=== PATIENT | male | born 1990 | race Hispanic/Latino ===

== ENCOUNTER 2020-11-13 10:03 | Emergency (ER) | payer SELFPAY ==
[2020-11-13 10:51] LABS: Absolute Lymphocytes (CBC) 1.1 K/uL (0.7-4.9); Basophils % 0.4 % (0-1.3); Hematocrit 44.7 % (39.6-49.0); MPV 8.7 fL (7.6-11.3); RBC Red Blood Cell Count 5.25 M/uL (4.33-5.43)
[2020-11-13 11:17] LABS: ALT/SGPT 56 U/L (12-78); AST/SGOT 34 U/L (15-37); Albumin 4.1 g/dL (3.4-5.0); Alkaline Phosphatase 110 U/L (45-117); BUN Blood Urea Nitrogen 20 mg/dL (7-18); Bicarbonate 22 mmol/L (21-32); Bilirubin Direct < 0.1 mg/dL (0-0.2); Bilirubin Total 0.6 mg/dL (0.2-1.0); Glucose Level 106 mg/dL (74-106); Lipase 80 U/L (73-393); Potassium 3.8 mmol/L (3.5-5.1); Protein, Total 8.6 g/dL (6.4-8.2); Sodium Level 139 mmol/L (136-145)
[2020-11-13] MEDS ORDERED: NA CHLORIDE 0.9% 1,000 ML ONE (11:37)
[2020-11-13] MEDS ORDERED: ONDANSETRON 4 MG/2 ML VIAL ONE (11:37)
[2020-11-13] MEDS ORDERED: MORPHINE 4 MG/ML SYR ONE (11:37)
--- NOTE | 2020-11-13 11:55 | RAD REPORT ---
EXAM DESCRIPTION: CT - Stone Protocol - 11/13/2020 11:19 am CLINICAL HISTORY: right flank pain Available history indicates the patient underwent a contrast-enhanced CT study 1 day earlier at an [place] [facility]. COMPARISON: Head Brain Wo Cont dated 04/19/2018No comparisons TECHNIQUE: Axial 3 mm thick images were obtained without oral or IV contrast. The [id number] span s the entirety of the system including uppermost abdomen and lung bases. All CT scans are performed using dose optimization technique as appropriate and may include automated exposure control or mA/KV adjustment according to patient size. FINDINGS: Mild right-sided hydronephrosis is present down to the UVJ level where there is a 2-3 mm c alculus. Contrast column fills the mildly dilated right collecting system. No other obstructing or no nobstructing calculi seen on the right. No left-sided hydronephrosis or calculi. No suspicious renal masses. Isodense masses and pyelonephritis are not excluded on a stone protocol CT scan. No significa nt adrenal finding. No urinary bladder suspicious finding. Imaged portions of the liver, spleen and pancreas show no suspicious findings on non-contrast imaging . No gallbladder or biliary tree abnormality identified. No suspicious bowel findings. No hernia, mass or bulky lymphadenopathy noted. No free air, free fluid or inflammatory stranding. No significant bony abnormality. Limited imaging of the lower chest shows no acute pleural or parenchymal process. The partially image d mediastinum and red show evidence for bulky lymphadenopathy. These areas are only partially imaged . Correlation is needed with any history of sarcoidosis or other non malignant etiology for lymphadenop athy. It is unknown if the prior day CT imaging included the chest. IMPRESSION: Mild right-sided hydronephrosis secondary to a 2-3 mm obstructing calculus at the right UVJ. Patient has suspicious mediastinal and hilar lymphadenopathy that is only partially imaged on this st udy. No additional history available regarding sarcoidosis or other non malignant sources for adenopa thy. Patient had contrast-enhanced CT imaging at an outside facility 1 day earlier. It is unknown if this included the chest. Isodense masses and pyelonephritis are not excluded on stone protocol technique.
[2020-11-13 12:48] LABS: Urine Blood 2+ (Negative); Urine Glucose Negative (Negative); Urine Protein Trace (Negative); Urine Specific Gravity >=1.030 (1.005-1.030); Urine pH 5.5 (5.0-7.0)
[2020-11-13] MEDS ORDERED: MAGNESIUM SULFATE 1 gm IVPB 1 GM/100 ML BAG IV ONE (12:58)
[2020-11-13] MEDS ORDERED: TAMSULOSIN 0.4 MG SR CAP ONE (12:58)
[2020-11-13] MEDS ORDERED: CEFTRIAXONE/SWI 1gm 1 GM/10 ML SYR ONE (12:58)
--- NOTE | 2020-11-13 13:04 | ER ---
Nurse's Notes [facility] Name: Alex Mathis Age: 30 yrs Sex: Male : 1990 Arrival Date: 11/13/2020 Time: 10:04 Bed 24 Private MD: Diagnosis: Calculus of ureter-right Presentation: 11/13 10:59 Chief complaint: Patient states: right flank, back pain since yesterday. Coronavirus iw screen: At this time, the client does not indicate any symptoms associated with coronavirus-19. Ebola Screen: Patient negative for fever greater than or equal to 101.5 degrees Fahrenheit, and additional compatible Ebola Virus Disease symptoms Patient denies exposure to infectious person. Patient denies travel to an Ebola-affected area in the 21 days before illness onset. No symptoms or risks identified at this time. Initial Sepsis Screen: Does the patient meet any 2 criteria? No. Patient's initial sepsis screen is negative. Does the patient have a suspected source of infection? No. Patient's initial sepsis screen is negative. Risk Assessment: Do you want to hurt yourself or someone else? Patient reports no desire to harm self or others. Onset of symptoms was November 12, 2020. 10:59 Method Of Arrival: Ambulatory iw 10:59 Acuity: CHENG 3 iw Historical: - Allergies: 11:01 No Known Allergies; iw - PMHx: 11:01 None; iw - Social history:: Smoking status: unknown. Screenin:01 Abuse screen: Denies threats or abuse. Denies injuries from another. Nutritional iw screening: No deficits noted. Tuberculosis screening: No symptoms or risk factors identified. Fall Risk None identified. Assessment: 11:01 General: Appears uncomfortable, Behavior is cooperative. Pain: Complains of pain in iw right mid back and right low back Pain radiates to right lower quadrant. Neuro: Level of Consciousness is awake, alert, obeys commands, Oriented to person, place, time, situation, Moves all extremities. Full function. Respiratory: Respiratory effort is even, unlabored. GI: Bowel sounds present X 4 quads. Abd is soft X 4 quads. Musculoskeletal: Range of motion: intact in all extremities. 14:00 Reassessment: patient ambulated out, given good RX coupon as well. no c/o at this time. zb Vital Signs: 10:59 BP 140 / 94; Pulse 95; Resp 16; Temp 97.4; Pulse Ox 99% on R/A; iw ED Course: 10:04 Patient arrived in ED. as 10:12 Dru Mares PA is PHCP. cp 10:12 Dru Pennington MD is Attending Physician. cp 10:42 Initial lab(s) drawn, by in, sent to lab. Inserted saline lock: 20 gauge in right em1 wrist, using aseptic technique. Blood collected. 10:59 Mirtha Parry, RN is Primary Nurse. iw 11:00 Triage completed. iw 11:05 Patient has correct armband on for positive identification. iw 11:19 CT Stone Protocol In Process Unspecified. EDMS 13:03 Brayden Pierson MD is Referral Physician. cp 14:00 No provider procedures requiring assistance completed. IV discontinued, intact, iw bleeding controlled, No redness/swelling at site. Pressure dressing applied. 14:00 Arm band placed on. zb Administered Medications: 11:37 Drug: NS 0.9% 1000 ml Route: IV; Rate: 1 bolus; Site: right hand; iw 12:35 Follow up: IV Status: Completed infusion iw 11:37 Drug: Zofran (Ondansetron) 4 mg Route: IVP; Site: right wrist; iw 12:00 Follow up: Response: No adverse reaction iw 11:37 Drug: morphine 4 mg Route: IVP; Site: right wrist; iw 12:00 Follow up: Response: No adverse reaction; Pain is decreased iw 12:51 Drug: Flomax (tamsulosin) 0.4 mg Route: PO; iw 13:30 Follow up: Response: No adverse reaction iw 12:51 Drug: Magnesium Sulfate 1 grams Route: IVPB; Infused Over: 1 hrs; Site: right wrist; iw 13:30 Follow up: IV Status: Completed infusion iw 12:51 Drug: Rocephin (cefTRIAXone) 1 grams Route: IV; Rate: calculated rate; Site: right iw wrist; 13:10 Follow up: IV Status: Completed infusion iw Outcome: 13:04 Discharge ordered by . cp 14:00 Patient left the ED. iw 14:00 Discharged to home ambulatory. zb 14:00 Condition: stable 14:00 Discharge instructions given to patient, Instructed on discharge instructions, follow up and referral plans. medication usage, Demonstrated understanding of instructions, follow-up care, medications, Prescriptions given X 3. Signatures: Dispatcher [employer] Yuridia Alaniz Irene, RN Stalin Sesay em1 Dru Mares PA PA cp Brown, Zipporah, RN RN zb
--- NOTE | 2020-11-13 13:04 | EDPHYS ---
Physician Documentation [facility] Name: Alex Mathis Age: 30 yrs Sex: Male : 1990 Arrival Date: 11/13/2020 Time: 10:04 Bed 24 Private MD: ED Physician Dru Pennington HPI: 11/13 11:00 This 30 yrs old Male presents to ER via Ambulatory with complaints of Possible cp Kidney Stone. 11:00 The patient complains of pain in the right flank. cp 11:00 The pain radiates to the back and abdomen. Onset: The symptoms/episode began/occurred cp yesterday. Associated signs and symptoms: Pertinent positives: nausea, Pertinent negatives: diarrhea, fever, pain radiating to the lower extremities, vomiting. 11:00 Severity of pain: in the emergency department the pain is unchanged despite home cp interventions. 12:15 Patient reports being seen at [facility] yesterday and being diagnosed with cp kidney stone. Patient was prescribed Ibuprofen for pain and Flomax. Historical: - Allergies: 11:01 No Known Allergies; iw - PMHx: 11:01 None; iw - Social history:: Smoking status: unknown. ROS: 11:05 Constitutional: Negative for body aches, chills, fever, poor PO intake. cp 11:05 Eyes: Negative for injury, pain, redness, and discharge. cp 11:05 ENT: Negative for ear pain, sore throat, difficulty swallowing, difficulty handling secretions. 11:05 Cardiovascular: Negative for chest pain, palpitations. 11:05 Respiratory: Negative for cough, shortness of breath, wheezing. 11:05 Abdomen/GI: Positive for abdominal pain, nausea and vomiting, Negative for diarrhea, constipation. 11:05 Back: Positive for flank pain, on the right. 11:05 Neuro: Negative for altered mental status, headache, weakness. 11:05 All other systems are negative. Exam: 11:10 Constitutional: The patient appears in no acute distress, alert, awake, cp non-diaphoretic, non-toxic, well developed, well nourished, in obvious pain, uncomfortable. 11:10 Head/Face: Normocephalic, atraumatic. cp 11:10 Eyes: Periorbital structures: appear normal, Conjunctiva: normal, no exudate, no injection, Sclera: no appreciated abnormality, Lids and lashes: appear normal, bilaterally. 11:10 ENT: External ear(s): are unremarkable, Nose: is normal, Mouth: Lips: moist, Oral mucosa: pink and intact, moist, Posterior pharynx: Airway: no evidence of obstruction, patent. 11:10 Chest/axilla: Inspection: normal, Palpation: is normal, no crepitus, no tenderness. 11:10 Cardiovascular: Rate: normal, Rhythm: regular. 11:10 Respiratory: the patient does not display signs of respiratory distress, Respirations: normal, no use of accessory muscles, no retractions, labored breathing, is not present, Breath sounds: are clear throughout, no decreased breath sounds, no stridor, no wheezing. 11:10 Abdomen/GI: Inspection: abdomen appears normal, Bowel sounds: active, all quadrants, Palpation: soft, in all quadrants, moderate abdominal tenderness, in the anterior aspect of right lateral abdomen and posterior aspect of right lateral abdomen, rebound tenderness, is not appreciated, voluntary guarding, is elicited in the anterior aspect of right lateral abdomen and posterior aspect of right lateral abdomen. 11:10 Back: pain, that is moderate, of the right low back, ROM is painful. 11:10 Skin: no rash present. Vital Signs: 10:59 BP 140 / 94; Pulse 95; Resp 16; Temp 97.4; Pulse Ox 99% on R/A; iw MDM: 10:48 Patient medically screened. cp 11:00 Differential diagnosis: nephrolithiasis, pyelonephritis, UTI, testicular torsion, cp diverticulitis, pancreatitis, appendicitis. 13:00 Data reviewed: vital signs, nurses notes, lab test result(s), radiologic studies, CT cp scan. ED course: no results found on website of [place] prescription monitor program. 13:03 Counseling: I had a detailed discussion with the patient and/or guardian regarding: the cp historical points, exam findings, and any diagnostic results supporting the discharge/admit diagnosis, lab results, radiology results, the need for outpatient follow up, a family practitioner, a urologist, to return to the emergency department if symptoms worsen or persist or if there are any questions or concerns that arise at home. 13:03 Response to treatment: the patient's symptoms have markedly improved after treatment. cp ED course: VSS. Pain and nausea markedly improved. Patient tolerating po. Will discharge to home for continued monitoring. Discussed incidental CT findings of lymphadenopathy and recommend f/u with primary physician. 11/13 10:28 Order name: Basic Metabolic Panel; Complete Time: 12:13 cp 11/13 12:13 Interpretation: Normal except: CL 108; BUN 20; GFR 79. cp 11/13 10:28 Order name: CBC with Diff; Complete Time: 12:13 cp 11/13 12:13 Interpretation: Normal except: WBC 11.10; MICHELE% 79.3; LYM% 10.0; NEUT A 8.8. cp 11/13 10:28 Order name: Hepatic Function; Complete Time: 12:13 cp 11/13 12:13 Interpretation: Normal except: TP 8.6; A/G 0.9; GLOB 4.5. cp 11/13 10:28 Order name: Lipase; Complete Time: 12:13 cp 11/13 12:48 Order name: Urine Dipstick-Ancillary; Complete Time: 13:02 EDMS 11/13 11:02 Order name: CT Stone Protocol; Complete Time: 12:13 cp 11/13 10:28 Order name: Urine Dipstick-Ancillary (obtain specimen); Complete Time: 13:17 cp 11/13 10:28 Order name: IV Saline Lock; Complete Time: 10:41 cp 11/13 10:28 Order name: Labs collected and sent; Complete Time: 10:41 cp 11/13 12:45 Order name: PO challenge; Complete Time: 13:04 cp Administered Medications: 11:37 Drug: NS 0.9% 1000 ml Route: IV; Rate: 1 bolus; Site: right hand; iw 12:35 Follow up: IV Status: Completed infusion iw 11:37 Drug: Zofran (Ondansetron) 4 mg Route: IVP; Site: right wrist; iw 12:00 Follow up: Response: No adverse reaction iw 11:37 Drug: morphine 4 mg Route: IVP; Site: right wrist; iw 12:00 Follow up: Response: No adverse reaction; Pain is decreased iw 12:51 Drug: Flomax (tamsulosin) 0.4 mg Route: PO; iw 13:30 Follow up: Response: No adverse reaction iw 12:51 Drug: Magnesium Sulfate 1 grams Route: IVPB; Infused Over: 1 hrs; Site: right wrist; iw 13:30 Follow up: IV Status: Completed infusion iw 12:51 Drug: Rocephin (cefTRIAXone) 1 grams Route: IV; Rate: calculated rate; Site: right iw wrist; 13:10 Follow up: IV Status: Completed infusion iw Disposition: 11/14 07:43 Co-signature as Attending Physician, Dru Pennington MD I agree with the assessment and ann plan of care. Disposition Summary: 11/13/20 13:04 Discharge Ordered Location: Home cp Problem: new cp Symptoms: have improved cp Condition: Stable cp Diagnosis - Calculus of ureter - right cp Followup: cp - With: Brayden Pierson MD - When: 1 - 2 days - Reason: Recheck today's complaints Discharge Instructions: - Discharge Summary Sheet cp - Kidney Stones cp - Renal Colic cp Forms: - Medication Reconciliation Form cp - Thank You Letter cp - Antibiotic Education cp - Prescription Opioid Use cp Prescriptions: - Zofran 4 mg Oral Tablet - take 1 tablet by ORAL route every 12 hours As needed; 20 tablet; Refills: 0, cp Product Selection Permitted - Tramadol 50 mg Oral Tablet - take 1 tablet by ORAL route every 8 hours as needed; 12 tablet; Refills: 0, cp Product Selection Permitted - Cipro 500 mg Oral Tablet - take 1 tablet by ORAL route every 12 hours for 7 days; 14 tablet; Refills: 0, cp Product Selection Permitted Signatures: Dispatcher [employer] Dru Wilson MD MD cha Williams, Irene RN RN Dru Conti PA PA cp Corrections: (The following items were deleted from the chart) 04:57 04:55 Patient reports being seen at [facility] yesterday and being diagnosed cp with kidney stone. Patient was prescribed Ibuprofen for pain and Flomax. cp
[2020-11-13 14:08] VITALS: BP 140/94; TEMP 97.4; O2SAT 99
== END 2020-11-13 14:00 | disposition home or self-care (01) ==
LOC: ER 10:03
DX: N20.1 Calculus of ureter (principal)
CPT/HCPCS: 36415; 74176; 76377; 80048; 80076; 81003; 83690; 85025; 96361; 96365; 96368; 96375; 99284; J0696; J2405; J3475; J7030